=== PATIENT | male | born 1960 | race Caucasian/White ===

== ENCOUNTER 2018-12-27 17:23 | Emergency (ER) | payer OTHER ==
[~2018-12-27] VITALS: Ht 175.3 cm; Wt 98.4 kg
[2018-12-27] MEDS ORDERED: ALTACE10 MG PO (17:34)
[2018-12-27] MEDS ORDERED: COREG25 MG PO (17:34)
[2018-12-27] MEDS ORDERED: LIPITOR80 MG PO (17:35)
[2018-12-27] MEDS ORDERED: MOBIC15 MG PO (17:35)
[2018-12-27] MEDS ORDERED: PLAVIX 75 MG TA75 MG PO (17:35)
[2018-12-27] MEDS ORDERED: SPIRONOLACTONE25 M1 PO (17:35)
[2018-12-27] MEDS ORDERED: BAYER CHEWABLE81 MG PO (17:36)
[2018-12-27] MEDS ORDERED: KEFLEX500 M1 PO (18:20)
[2018-12-27] MEDS ORDERED: ACETAMINOPHEN-1 EAC1 PO (18:20)
[2018-12-27 18:31] VITALS: BP 135/71
== END 2018-12-27 18:32 | disposition home or self-care (01) ==
LOC: M.ERS 17:23
DX: S81.811A Laceration without foreign body, right lower leg, initial encounter (principal); I10 Essential (primary) hypertension; M19.90 Unspecified osteoarthritis, unspecified site; E78.5 Hyperlipidemia, unspecified; Z88.5 Allergy status to narcotic agent; Z88.0 Allergy status to penicillin; Z88.8 Allergy status to other drugs, medicaments and biological substances; Z95.5 Presence of coronary angioplasty implant and graft; Z96.652 Presence of left artificial knee joint; W18.39XA Other fall on same level, initial encounter; Y92.89 Other specified places as the place of occurrence of the external cause; Y93.89 Activity, other specified; Y99.8 Other external cause status

== ENCOUNTER 2019-01-20 10:41 | Emergency (ER) | payer OTHER ==
[~2019-01-20] VITALS: Ht 172.7 cm; Wt 108.0 kg
[~2019-01-20 10:41] MED LIST: ACETAMINOPHEN-1 EAC1 PO; ALTACE10 MG PO; BAYER CHEWABLE81 MG PO; COREG25 MG PO; KEFLEX500 M1 PO; LIPITOR80 MG PO; MOBIC15 MG PO; PLAVIX 75 MG TA75 MG PO; SPIRONOLACTONE25 M1 PO
[2019-01-20] MEDS ORDERED: CENTANY30 GM TOP (11:04)
[2019-01-20] MEDS ORDERED: DOXYCYCLINE 10100 MG PO (11:04)
[2019-01-20 11:34] VITALS: BP 125/57
== END 2019-01-20 11:35 | disposition home or self-care (01) ==
LOC: M.ERS 10:41
DX: S81.811D Laceration without foreign body, right lower leg, subsequent encounter (principal); X58.XXXD Exposure to other specified factors, subsequent encounter; I10 Essential (primary) hypertension; E78.5 Hyperlipidemia, unspecified; Z95.5 Presence of coronary angioplasty implant and graft; Z96.652 Presence of left artificial knee joint; Z88.0 Allergy status to penicillin; Z88.5 Allergy status to narcotic agent

== ENCOUNTER → 2019-02-10 | Outpatient (CLI) | payer OTHER ==
[~2019-02-10] MED LIST changes: +CENTANY30 GM TOP; +DOXYCYCLINE 10100 MG PO
== END ==
LOC: M.WC 13:00
DX: L97.811 Non-pressure chronic ulcer of other part of right lower leg limited to breakdown of skin (principal); E78.5 Hyperlipidemia, unspecified; I10 Essential (primary) hypertension; M19.90 Unspecified osteoarthritis, unspecified site; Z96.652 Presence of left artificial knee joint

== ENCOUNTER → 2019-02-17 | Outpatient (CLI) | payer OTHER | LOC: M.WC 00:30 | DX: L97.811 Non-pressure chronic ulcer of other part of right lower leg limited to breakdown of skin (principal); E78.5 Hyperlipidemia, unspecified; I10 Essential (primary) hypertension; M19.90 Unspecified osteoarthritis, unspecified site; Z79.82 Long term (current) use of aspirin; Z95.5 Presence of coronary angioplasty implant and graft; Z96.652 Presence of left artificial knee joint ==

== ENCOUNTER → 2019-02-24 | Outpatient (CLI) | payer OTHER | LOC: M.WC 05:38 | DX: L97.811 Non-pressure chronic ulcer of other part of right lower leg limited to breakdown of skin (principal); E78.5 Hyperlipidemia, unspecified; I10 Essential (primary) hypertension; M19.90 Unspecified osteoarthritis, unspecified site; Z95.5 Presence of coronary angioplasty implant and graft; Z96.652 Presence of left artificial knee joint ==

== ENCOUNTER → 2020-05-11 | Outpatient (CLI) | payer OTHER ==
[~2020-05-11] VITALS: Ht 175.3 cm; Wt 99.8 kg
[2020-05-11] VITALS (8 sets, daily range): BP systolic 112–154; BP diastolic 56–72
[~2020-05-11] MED LIST changes: +NORVASC10 MG PO
[2020-05-11 11:42] LABS: HEMATOCRIT 35.3 % (42.0-52.0); HEMOGLOBIN 12.5 gm/dL (14.0-18.0); MCH 31.1 pg (26.0-34.0); MCHC 35.5 g/dL (28.0-37.0); MCV 87.7 fL (80.0-100.0); MPV 7.3 fl. (7.2-11.1); RBC 4.03 mil/uL (4.50-6.00); RDW-CV 13.1 % (10.5-14.5); WBC 5.3 thou/uL (4.0-11.0)
[2020-05-11 11:51] LABS: ANION GAP 9 mmol/L (7-16); BUN 14 mg/dL (7-18); CALCIUM 7.5 mg/dL (8.5-10.1); CHLORIDE 106 mmol/L (98-107); CO2 25 mmol/L (21-32); CREATININE 0.8 mg/dL (0.6-1.3); GLUCOSE 96 mg/dL (70-99); POTASSIUM 3.9 mmol/L (3.5-5.1); SODIUM 140 mmol/L (136-145)
[2020-05-11 11:52] LABS: APTT 23.6 Seconds (25.0-31.3); INR 1.1; PROTIME 11.6 Seconds (9.20-11.50)
[2020-05-11 11:55] LABS: ALBUMIN 3.4 g/dL (3.4-5.0); ALKALINE PHOSPHATASE 65 U/L (46-116); CHOLESTEROL 112 mg/dL (<200); HDL CHOLESTEROL 32 mg/dL (>40); LDL CHOLESTEROL 70 mg/dL (<100); SERUM ASSESSMENT Clear; SGOT 19 U/L (15-37); SGPT 32 U/L (30-65); TC:HDL 3.5 Ratio (Not establshd); TOTAL BILIRUBIN 0.5 mg/dL (<0.1-1.0); TOTAL PROTEIN 6.3 g/dL (6.4-8.2); TRIGLYCERIDE 54 mg/dL (<150); VLDL 11 mg/dL (<40)
--- NOTE | 2020-05-11 17:40 | EKG ---
[place] [address] ELECTROCARDIOGRAM REPORT Name: MARLEN BEASLEY Room: [facility]#: [id number] Admission: 05/11/20 Attend Phys: Antoine Gregg MD Discharge: Date of : 56 Date of Service: 05/11/20 1245 Report #: [id number] THIS REPORT FOR: //name// [facility] Test Date: 2020-05-11 Test Time: 12:45:45 Pat Name: MARLEN BEASLEY Department: Room: Gender: Corrugator: : 1960 Requested By: Antoine Gregg Order Number: [id number] Bipin MD: Antoine Gregg Measurements Intervals Roberta Rate: 47 P: 35 DC: 226 QRS: 40 QRSD: 84 T: 26 QT: 447 QTc: 396 Interpretive Statements Sinus bradycardia Borderline prolonged DC interval No previous ECG available for comparison Electronically Signed On 05-11-2020 17:40:40 CDT by Antoine Gregg [email or web address] <ELECTRONICALLY SIGNED> By: Antoine Gregg MD, [facility] 05/11/20 1740 1245 Antoine Gregg MD, FACC /EPI
--- NOTE | 2020-05-11 18:06 | NUR ---
RAD STAT REMOVED, HEMOSTASIS CONFIRMED. GAUZE AND WRAP DRESSING APPLIED. POST-RADIAL CATH DISCHARGE INSTRUCTIONS EXPLAINED AND WRITTEN COPY GIVEN TO PT AND , VERBALIZED UNDERSTANDING AND DENIED QUESTIONS OR CONCERNS. DISCHARGED VIA W/C TO PERSONAL VEHICLE, [facility] AND HOSPITAL CONTACT INFO PROVIDED IN WRITING. ALL PERSONAL BELONGINGS SENT HOME WITH PT.
--- NOTE | 2020-05-11 19:08 | CARD ---
[address] [address] CARDIAC CATH REPORT Name: MARLEN BEASLEY Room: [facility] Etienne#: [id number] Admission: 05/11/20 Attend Phys: Antoine Gregg MD, F Discharge: Date of : 56 Report #: [id number] THIS REPORT FOR: //name// cc: Cherelle Villanueva Tara DO ~ APPROVED REPORT Study performed: 05/11/2020 14:48:39 Patient Details Patient Status: Out-Patient Room #: The patient is a 59 year-old male Event Personnel Antoine Gregg Indoor Landscaper/Gardener, Zac Elliott RN Tanning Wheel Operator, Rory HallubNed Becki RTR Monitor Procedures Performed Art Access - R radial artery, Left Heart Cath w/or w/o Coronaries LHC , Hemostasis with Hemoband Indication Chest pain Risk Factors Arterial Hypertension, Hypercholesterolemia, Coronary Artery Disease Previous Procedures/Diagnoses Previous PCI Admission/Lab Medications/Medications given during procedure Heparin Unfract., Aspirin PO 325 mg(prior to LHC), Nitroglycerin IA 200 mcg, Verapamil IA 2.5 mg, Heparin IV 5000 units, Nitroglycerin IA 200 mcg, Verapamil IA 2.5 mg Procedure Narrative The patient was brought electively to the Cardiac Catheterization Laboratory and was prepped and draped in a sterile manner. The right wrist was infiltrated with 1% Lidocaine subcutaneous anesthesia. A 6F Slender Glidesheath sheath was inserted into the right radial artery. Coronary angiography was performed using coronary diagnostic catheters. The right coronary system was accessed and visualized with a 5F AR Mod catheter. The left coronary system [place] [address] CARDIAC CATH REPORT Name: RAMOSMARLEN Juan F Room: [facility]#: [id number] Admission: 05/11/20 Attend Phys: Antoine Gregg MD, F Discharge: Date of : 56 Report #: [id number] visualized with a 6F Kittery 4.0 catheter. The left ventricle was accessed and visualized with a 6F Angled Pigtail catheter. Left ventricular/Aortic Valve gradient assessed via catheter pullback. Left ventriculogram was performed in NICOLAS projection. Closure device was deployed with a 6 Fr Vasc-Band Long 27cm. The patient tolerated the procedure well and there were no complications associated with the procedure. There was no hematoma. The right wrist area was infiltrated with 2% NESACAINE subcutaneous anesthesia. Intraoperative Conscious Sedation Sedation start time: 15:30 Case end Time: 15:47 Versed 2 mg Fluoro Time: 3.4 minutes Dose: DAP 77280 cGycm2 1003 mGy Contrast Type and Amount: Omnipaque 170 ml Coronary Angiography The patient's coronary anatomy is left dominant. [place] Artery Percent Stenosis Left Main: 0 % Prox LAD: 30 % Mid/Distal LAD: 0 % Circumflex: 60 % RCA: 0 % Ramus: % Left Ventriculography The left ventricular ejection fraction is estimated to be 60-65%. Left ventricular wall motion abnormalities are not present. There is no mitral insufficiency. Hemodynamics The aortic pressure is 118/68 mmHg with a mean of 90 mmHg. The left ventricular pressure is 132/10 mmHg with a mean of mmHg. The left ventricular end diastolic pressure is 15 mmHg. There was no gradient across the aortic valve upon pullback. Pullback from the left ventricle to the aorta revealed no gradient across the aortic valve. Conclusion 1. no significant restenosis of a stent in the proximal lad 2. 60% stenosis of the distal PDA branch of the circumflex artery 3. LVEF 60-65% 4. suspect [place] [address] CARDIAC CATH REPORT Name: RAMOSMARLEN Juan F Room: [facility]#: [id number] Admission: 05/11/20 Attend Phys: Antoine Gregg MD, F Discharge: Date of : 56 Report #: [id number] Recommendations Aggressive Medical Therapy <ELECTRONICALLY SIGNED> By: Antoine Gregg MD, [facility] 05/11/20 1908 190 1908Daisaac Gregg MD, FACC /INF
== END ==
LOC: M.CL 10:51
PROVIDERS: ATTEND Internal Medicine Cardiovascular Disease
DX: R07.9 Chest pain, unspecified (principal); I25.10 Atherosclerotic heart disease of native coronary artery without angina pectoris; I10 Essential (primary) hypertension; M19.90 Unspecified osteoarthritis, unspecified site; E78.5 Hyperlipidemia, unspecified; Z79.899 Other long term (current) drug therapy; Z98.890 Other specified postprocedural states; Z88.0 Allergy status to penicillin; Z88.8 Allergy status to other drugs, medicaments and biological substances; Z88.1 Allergy status to other antibiotic agents